=== PATIENT | female | born 1970 | race Caucasian/White ===

== ENCOUNTER → 2019-05-03 | Outpatient (CLI) | payer OTHER ==
[2005-02-18 00:31] VITALS: PULSE 94; TEMP 97
== END ==
LOC: MC.RAD 07:09
DX: Z12.31 Encounter for screening mammogram for malignant neoplasm of breast (principal)

== ENCOUNTER → 2019-11-05 | Outpatient (CLI) | payer OTHER ==
[2005-02-18 00:31] VITALS: PULSE 94; TEMP 97
== END ==
LOC: COL.RAD 11-04 07:30
DX: R10.13 Epigastric pain (principal)

== ENCOUNTER → 2022-01-25 | Outpatient (CLI) | payer OTHER ==
[2005-02-18 00:31] VITALS: TEMP 97
== END ==
LOC: MC.RAD 06:56
DX: Z12.31 Encounter for screening mammogram for malignant neoplasm of breast (principal)